=== PATIENT | female | born 1980 | race Two or more races ===

== ENCOUNTER 2016-03-30 12:42 | Emergency (ER) | payer SELFPAY ==
[~2016-03-30] VITALS: Ht 160 cm; Wt 52.2 kg
[2016-03-30 12:49] VITALS: BP 102/50
[2016-03-30] MEDS ORDERED: PENICILLIN G BENZATHINE 2.4 MMU/4 ML ML IM ONE ×2 (13:00→13:08)
== END 2016-03-30 13:50 | disposition home or self-care (01) ==
LOC: ER 12:46
DX: J02.9 Acute pharyngitis, unspecified (principal)
CPT/HCPCS: A4606; J0558; Z7610